=== PATIENT | male | born 1970 | race Caucasian/White ===

== ENCOUNTER 2020-10-27 21:56 | Emergency (ER) | payer OTHER ==
[~2020-10-27] VITALS: Ht 182.9 cm; Wt 108.0 kg
[2020-10-27 22:01] VITALS: Ht 182.9 cm; Wt 108.0 kg
[2020-10-27 23:47] VITALS: BP 133/84
== END 2020-10-27 23:47 | disposition home or self-care (01) ==
LOC: ED 21:56
DX: S76.912A Strain of unspecified muscles, fascia and tendons at thigh level, left thigh, initial encounter (principal); S39.012A Strain of muscle, fascia and tendon of lower back, initial encounter; W10.9XXA Fall (on) (from) unspecified stairs and steps, initial encounter; Y93.89 Activity, other specified; Y92.89 Other specified places as the place of occurrence of the external cause; Y99.8 Other external cause status
CPT/HCPCS: J1885